=== PATIENT | male | born 1940 | race Asian ===

== ENCOUNTER 2022-04-30 08:57 | Day surgery (SDC) | payer OTHER ==
[2022-04-27 14:57] VITALS: BMI 28.1
[2022-04-30] MEDS ORDERED: OFLOXACIN 0.3% OPHTHALMIC SOLUTION 5 ML BOTTLE ONE (09:36)
[2022-04-30] MEDS ORDERED: KETOROLAC TROMETHAMINE 0.5% EYE DROP 1 DROP DROPS ONE (09:36)
[2022-04-30] MEDS ORDERED: TROPICAMIDE 1% OPHTH SOLN 15 ML BOTTLE ONE (09:36)
[2022-04-30] MEDS ORDERED: CYCLOPENTOLATE HCL 1% OPHTH SOLN 2 ML BOTTLE ONE (09:37)
[2022-04-30] MEDS: TROPICAMIDE 1% OPHTH SOLN 15 ML BOTTLE OD SCH ×3 (09:45→09:55)
[2022-04-30] MEDS: PHENYLEPHRINE 2.5% OPTHALMIC DROP 2ML BOTTLE ONE ×2 (09:45→09:50)
[2022-04-30] MEDS: CYCLOPENTOLATE HCL 1% OPHTH SOLN 2 ML BOTTLE OD SCH ×3 (09:45→09:55)
[2022-04-30] MEDS: OFLOXACIN 0.3% OPHTHALMIC SOLUTION 5 ML BOTTLE OD SCH ×3 (09:45→09:55)
[2022-04-30] MEDS: KETOROLAC TROMETHAMINE 0.5% EYE DROP 1 DROP DROPS OD SCH ×3 (09:45→09:55)
[2022-04-30] MEDS ORDERED: EPINEPHrine/PF 1 MG/1 ML (1:1,000) AMPULE ONE (09:54)
[2022-04-30] MEDS ORDERED: BACITRACIN/POLYMYXIN OPH OINT 3.5 GM TUBE ONE (09:54)
[2022-04-30] MEDS ORDERED: POVIDONE-IODINE 5% OPHTHALMIC PREP 30 ML SOLUTION ONE (09:55)
[2022-04-30] MEDS ORDERED: TETRACAINE 0.5% OPHTH SOLN 2 ML BOTTLE ONE (09:55)
[2022-04-30] MEDS ORDERED: BETAXOLOL HCL 0.25% OPHTHALMIC 10 ML DROPSBTL ONE (09:55)
[2022-04-30] MEDS ORDERED: NEO/POLYMYX B SULF/DEXAMETH OPHTHALMIC 5ML BOTTLE ONE (09:55)
[2022-04-30] MEDS ORDERED: ACETAMINOPHEN 325 MG TABLET (FP) PO PRN (10:36)
[2022-04-30] MEDS ORDERED: MIDAZOLAM HCL 2 MG/2 ML SINGLE DOSE VIAL ONE (11:16)
[2022-04-30 12:42] VITALS: BP 129/74; PULSE 75; RESP 18; TEMP 97.9
[2022-04-30] MEDS ORDERED: PHENYLEPHRINE 2.5% OPHTH SOLN 15 ML BOTTLE OD SCH (19:00)
== END 2022-04-30 12:40 | disposition home or self-care (01) ==
LOC: FASU 08:57
PROVIDERS: ATTEND Ophthalmology
PROC: 08RJ3JZ Replacement of Right Lens with Synthetic Substitute, Percutaneous Approach (ICD-10-PCS; principal; 2022-04-30 11:39)
DX: H25.11 Age-related nuclear cataract, right eye (principal)
CPT/HCPCS: 66984; V2632

== ENCOUNTER 2022-05-14 09:19 | Day surgery (SDC) | payer OTHER ==
[2022-04-27 15:07] VITALS: BMI 28.1
[2022-05-14] MEDS ORDERED: TETRACAINE 0.5% OPHTH SOLN 2 ML BOTTLE ONE (09:29)
[2022-05-14] MEDS ORDERED: BACITRACIN/POLYMYXIN OPH OINT 3.5 GM TUBE ONE (09:29)
[2022-05-14] MEDS ORDERED: BETAXOLOL HCL 0.25% OPHTHALMIC 10 ML DROPSBTL ONE (09:29)
[2022-05-14] MEDS ORDERED: EPI-SHUGARCAINE (EPINEPHRINE 0.025% & LIDOCAINE-PF 0.75%) 4ML ONE (09:29)
[2022-05-14] MEDS ORDERED: NEO/POLYMYX B SULF/DEXAMETH OPHTHALMIC 5ML BOTTLE ONE (09:29)
[2022-05-14] MEDS ORDERED: POVIDONE-IODINE 5% OPHTHALMIC PREP 30 ML SOLUTION ONE (09:29)
[2022-05-14] MEDS ORDERED: TROPICAMIDE 1% OPHTH SOLN 15 ML BOTTLE ONE (09:59)
[2022-05-14] MEDS ORDERED: KETOROLAC TROMETHAMINE 0.5% EYE DROP 1 DROP DROPS ONE (09:59)
[2022-05-14] MEDS ORDERED: CYCLOPENTOLATE HCL 1% OPHTH SOLN 2 ML BOTTLE ONE (09:59)
[2022-05-14] MEDS ORDERED: PHENYLEPHRINE 2.5% OPTHALMIC DROP 2ML BOTTLE ONE (09:59)
[2022-05-14] MEDS ORDERED: OFLOXACIN 0.3% OPHTHALMIC SOLUTION 5 ML BOTTLE ONE (09:59)
[2022-05-14] MEDS: TROPICAMIDE 1% OPHTH SOLN 15 ML BOTTLE OS SCH ×3 (10:15→10:25)
[2022-05-14] MEDS: CYCLOPENTOLATE HCL 1% OPHTH SOLN 2 ML BOTTLE OS SCH ×3 (10:15→10:25)
[2022-05-14] MEDS: OFLOXACIN 0.3% OPHTHALMIC SOLUTION 5 ML BOTTLE OS SCH ×3 (10:15→10:25)
[2022-05-14] MEDS: KETOROLAC TROMETHAMINE 0.5% EYE DROP 1 DROP DROPS OS SCH ×3 (10:15→10:25)
[2022-05-14] MEDS: PHENYLEPHRINE 2.5% OPHTH SOLN 15 ML BOTTLE OS SCH ×3 (10:15→10:25)
[2022-05-14 10:17] VITALS: RESP 16
[2022-05-14] MEDS ORDERED: MIDAZOLAM HCL 2 MG/2 ML SINGLE DOSE VIAL ONE (11:50)
[2022-05-14] MEDS ORDERED: ACETAMINOPHEN 325 MG TABLET (FP) PO PRN (12:31)
[2022-05-14 13:39] VITALS: TEMP 97.9
[2022-05-14 13:41] VITALS: BP 150/74; PULSE 74
== END 2022-05-14 13:05 | disposition home or self-care (01) ==
LOC: FASU 09:19
PROVIDERS: ATTEND Ophthalmology
PROC: 08RK3JZ Replacement of Left Lens with Synthetic Substitute, Percutaneous Approach (ICD-10-PCS; principal; 2022-05-14 12:12)
DX: H25.12 Age-related nuclear cataract, left eye (principal)
CPT/HCPCS: 66984; V2632